=== PATIENT | male | born 1995 | race Caucasian/White ===

== ENCOUNTER 2017-10-21 11:12 | Emergency (ER) | payer BC, OTHER ==
--- NOTE | 2017-10-21 20:25 | RAD ---
LEFT CLAVICLE TWO VIEWS 10/21/17 No fracture was seen. The clavicle appeared intact. The AC joint was normal in width. IMPRESSION: No acute finding. POS: HOME
== END 2017-10-21 11:53 | disposition home or self-care (01) ==
LOC: BURERS 11:12
DX: S40.012A Contusion of left shoulder, initial encounter (principal); F17.290 Nicotine dependence, other tobacco product, uncomplicated; V43.52XA Car driver injured in collision with other type car in traffic accident, initial encounter